=== PATIENT | male | born 1940 | race Caucasian/White ===

== ENCOUNTER 2023-07-05 09:17 | Emergency (ER) | payer MEDICARE, SELFPAY ==
[2023-07-05 09:35] VITALS: BP 164/84; PULSE 90; RESP 18; TEMP 36.9; O2SAT 95; BMI 29.8
--- NOTE | 2023-07-05 10:14 | EXP.UTC ---
Discharge Plan Disposition Patient Disposition: Still a Patient Referrals Follow up/Referrals: Justo Westfall DO [Staff Physician] - See instructions Rui Boothe MD [Primary Care Provider] - See instructions Activity Restrictions/Add. Instructions Additional Instructions/Restrictions: Your acute on chronic back pain associated with radicular symptoms needs to be evaluated by primary care physician and have an outpatient MRI if they feel like it is indicated. You do not have any signs or symptoms of a central nervous system compression that would warrant emergency MRI or emergent surgical intervention at this point. Clinical Impressions Clinical Impression: Chronic back pain Instructions Patient Instructions: DI for Low Back Pain Discharge ED Provider: Arnaldo Garza [facility] General Chief complaint: Back Pain/Injury Stated complaint: back pain down to leg, numbness in ankles Mode of Arrival: Ambulatory Source of Information: Patient Limitations: No Limitations Time Seen by Provider: 07/05/23 10:14 Description of Symptoms (Recalled from Triage Doc. 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 He has had multiple back surgeries. He states that he has right sided back pain that runs down his right leg. He states that he has bilateral ankle numbness HEENT Symptoms (Recalled from RN notes): No Resp Symptoms (Recalled from RN notes): No Skin Symptoms (Recalled from RN notes): No MS Symptoms (Recalled from RN notes): Yes Functional Status (Recalled from RN notes): n/a History of Present Illness Provider Complaint: Patient state that he has had a bad back for many years and had several back surgeries State that for the last week or so he has been having severe pain in his lower back that is going down into his right legs and feels like he is having numbness in both his ankles States that he was walking on a cane but has been using a walker and when he walks a couple feet he feels like his legs are going to give out from under him states that they are afraid he is going to fall he has been so weak States that the pain has got worse so he came in requesting a CT or MRI Denies loss of control of bowel or bladder Related Data Allergies Allergy/AdvReac Type Severity Reaction Status Date / Time No Known Allergies Allergy Verified 07/05/23 09:51 Worker's Comp Is this a Worker's Comp case?: No [facility] Disclaimer: The information contained in this section may have been updated after the patient was seen, as this information can be updated by other users. 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 Skin cancer Surgical History (Updated 07/05/23 @ 12:19 by Toshia Polanco CMA) H/O discectomy H/O shoulder surgery History of bilateral hip replacements History of bilateral knee replacement History of lumbar laminectomy for spinal cord decompression Social History (Updated 07/05/23 @ 11:05 by Arnaldo Garza MD) Smoking Status: Never smoker alcohol intake: never current occupational status: other Travel in the last 8 weeks: None ROS Obtained: Yes All systems reviewed & no additional complaints except as documented and Yes Systems reviewed as appropriate & no additional complaints except as documented Constitutional Constitutional: Reports system reviewed and no additional complaints, except as documented, Reports as per HPI and Reports weakness ENT Ears, Nose, Mouth, and Throat: Reports disequilibrium Cardiovascular Cardiovascular: Reports system reviewed and no additional complaints, except as documented and Reports as per HPI Respiratory Respiratory: Reports system reviewed and no additional complaints, except as documented and Reports as per HPI Gastrointestinal Gastrointestingal: Reports system reviewed and no additional complaints, except as documented and as per HPI Genito
[2023-07-05 10:30] VITALS: BP 146/81; PULSE 82; O2SAT 95
[2023-07-05 10:41] VITALS: BP 146/81; PULSE 81; RESP 18; TEMP 36.7; O2SAT 95; BMI 29.8
--- NOTE | 2023-07-05 11:02 | HMH.EDGENADL ---
Discharge Plan Disposition Patient Disposition: Still a Patient Referrals Follow up/Referrals: Justo Westfall DO [Staff Physician] - See instructions Rui Boothe MD [Primary Care Provider] - See instructions Activity Restrictions/Add. Instructions Additional Instructions/Restrictions: Your acute on chronic back pain associated with radicular symptoms needs to be evaluated by primary care physician and have an outpatient MRI if they feel like it is indicated. You do not have any signs or symptoms of a central nervous system compression that would warrant emergency MRI or emergent surgical intervention at this point. Clinical Impressions Clinical Impression: Chronic back pain Instructions Patient Instructions: DI for Low Back Pain Discharge ED Provider: Arnaldo Garza General Adult HPI General Chief complaint: Back Pain/Injury Stated complaint: back pain down to leg, numbness in ankles Time Seen by Provider: 07/05/23 10:14 Mode of Arrival: Wheelchair Source of Information: Patient Limitations: No Limitations Description of Symptoms (Recalled from ER Triage Doc. by RN): Patient complaint of right sided lower back pain that radiates to his hip and down his leg. States he has had this problem for weeks now and it is getting worse. Patient states he thinks he has a bad disc in his back. History of Present Illness HPI narrative: Patient is an 82-year-old male with 48-year history of back pain presenting to the emergency department with 1 week worsening of his symptoms. Has had 2 laminectomies with discectomies in the past feels like he has the same types of symptoms this time. Went to urgent treatment clinic and they sent him over the emergency department because the patient was adamant that he needed an MRI. He has bilateral hip replacements bilateral knee replacements has chronic arthritis as well. States the pain is located in the right posterior lateral aspect of his back radiating down the posterior aspect of his legs has no associated lower extremity weakness no saddle anesthesia no paralysis no urinary retention no urinary incontinence that is out of proportion to what he normally has no bowel incontinence no history of cancer no history of injection drug use or fever with this illness. Related Data Allergies Allergy/AdvReac Type Severity Reaction Status Date / Time No Known Allergies Allergy Verified 07/05/23 09:51 [facility] Disclaimer: The information contained in this section may have been updated after the patient was seen, as this information can be updated by other users. Social History Smoking Status: Never smoker alcohol intake: never current occupational status: other Travel in the last 8 weeks: None ROS Obtained: Yes All systems reviewed & no additional complaints except as documented Physical Exam General General appearance: alert and in no apparent distress Respiratory Respiratory exam: Present normal lung sounds bilaterally; Absent respiratory distress Cardiovascular Cardiovascular exam: Present regular rate Back Exam Back exam: Present other (Normal right lower extremity strength and sensation no saddle anesthesia there is some pain on the right lumbosacral region) Neurological Exam Neurological exam: Present alert and oriented X3 Medical Decision Making Chuy Inquiry Pt receiving controlled substance: No Vital Signs: 07/05/23 09:35 07/05/23 10:41 07/05/23 10:30 Temperature 98.5 F 98.1 F Temperature Source Oral Oral Pulse Rate 82 Pulse Rate [Right Radial] 90 81 Respiratory Rate 18 18 Blood Pressure 146/81 H Blood Pressure [Right Arm] 164/84 H 146/81 H Blood Pressure Mean 102 Blood Pressure Mean [Right Arm] 110 102 Blood Pressure Source [Right Arm] Automatic Cuff Automatic Cuff Blood Pressure Position [Right Arm] Sitting Sitting 02 Sat by Pulse Oximetry 95 95 95 Oxygen Delivery Method Room Air Room Air Room Air Medical Decision Narrative: 82-ye
[2023-07-05 11:32] VITALS: BP 146/81; PULSE 81; RESP 18; TEMP 36.7; O2SAT 95
== END 2023-07-05 11:33 | disposition still patient (30) ==
LOC: UTC 09:22 → ER 10:17
PROVIDERS: Emergency Provider Student in an Organized Health Care Education/Training Program; PCP Family Medicine
DX: M54.50 Low back pain, unspecified (principal); M25.551 Pain in right hip
CPT/HCPCS: 72100; 80053; 80061; 83036; 84439; 84443; 85025; 99285; G0103

== ENCOUNTER → 2023-07-05 11:00 | Outpatient (CLI) | payer MEDICARE, SELFPAY ==
[2023-07-05 17:31] LABS: Basophils # 0.1 K/mm3 (0-0.2); Basophils % 0.6 % (0.1-2.0); Eosinophils # 0.2 K/mm3 (0.0-0.4); Eosinophils % 1.9 % (0.1-12.0); Hemoglobin 15.3 g/dL (14.1-18.0); Lymphocytes # 3.3 K/mm3 (0.7-4.5); Lymphocytes % 36.1 % (10-50); Mean Corpuscular HGB Conc 32.6 g/dL (31.8-35.4); Mean Corpuscular Hemoglobin 29.8 pg (27.0-31.2); Mean Corpuscular Volume 91.4 fl (80-94); Mean Platelet Volume 8.2 fl (7.4-10.4); Monocytes % 10.9 % (1.7-9.3); Neutrophils # 4.7 K/mm3 (1.8-7.8); Neutrophils % 50.7 % (37.0-80.0); Platelet Count 213 K/mm3 (142-424); Red Blood Count 5.14 M/mm3 (4.60-6.20); Red Cell Distribution Width 14.8 % (11.5-17.5); White Blood Count 9.2 K/mm3 (4.8-10.8)
[2023-07-05 17:57] LABS: Alanine Aminotransferase 32 U/L (12-78); Albumin Level 3.6 g/dl (3.5-5.0); Albumin/Globulin Ratio 1.4 (1.1-1.8); Alkaline Phosphatase 86 U/L (38-126); Anion Gap 12.1 mEq/L (5-15); Aspartate Amino Transferase 30 U/L (17-59); Bilirubin,Total 1.3 mg/dl (0.2-1.3); Blood Urea Nitrogen 12 mg/dl (9-20); Carbon Dioxide 30 mmol/L (22.0-30.0); Chloride 99 mmol/L (98-107); Chol/HDL Ratio 4.2 (1-3.5); Cholesterol 200 mg/dl (140-200); Estimated Glomerular Filt Rate 92 ml/min (>60); GFR (African American) 111 ML/MIN (>60); Globulin 2.6 g/dL (1.3-3.2); Glucose 138 mg/dl (74-100); HDL Cholesterol 48 mg/dl (40-60); Potassium 4.1 mmoL/L (3.5-5.1); Sodium 137 mmol/L (136-145); Total Protein,Serum 6.2 g/dl (6.3-8.2); Triglycerides 114 mg/dl (30-150); VLDL Cholesterol 23 mg/dL (0-40)
[2023-07-05 18:08] LABS: Direct LDL Cholesterol 115.47 mg/dL (100-129)
[2023-07-05 18:15] LABS: Free T4 (Free Thyroxine) 1.02 ng/dl (0.78-2.19)
[2023-07-05 18:28] LABS: Prostate Specific Ag Screen 80.9 ng/ml (0.0-4.0); Thyroid Stimulating Hormone 2.59 uIU/mL (0.465-4.68)
[2023-07-06 00:17] LABS: Hemoglobin A1C 8.8 % (4.0-6.0)
== END ==
PROVIDERS: PCP Internal Medicine; Visit Provider Internal Medicine
DX: E05.90 Thyrotoxicosis, unspecified without thyrotoxic crisis or storm (principal); Z13.29 Encounter for screening for other suspected endocrine disorder; R73.9 Hyperglycemia, unspecified; R97.20 Elevated prostate specific antigen [PSA]; Z00.00 Encounter for general adult medical examination without abnormal findings; E78.5 Hyperlipidemia, unspecified; Z13.220 Encounter for screening for lipoid disorders; G89.29 Other chronic pain; M54.9 Dorsalgia, unspecified
CPT/HCPCS: 80053; 80061; 83036; 84439; 84443; 85025; G0103

== ENCOUNTER → 2023-07-05 12:48 | Outpatient (CLI) | payer MEDICARE, SELFPAY ==
--- NOTE | 2023-07-05 12:53 | XR_ITS ---
FINAL REPORT CLINICAL HISTORY: Severe low back pain COMPARISON: None FINDINGS: 3 views of the lumbar spine were obtained. There is no evidence of fracture or dislocation. The vertebral alignment is normal. There are advanced changes of degenerative disc disease at L3-4, L4-5, and L5-S1. Vertebrae are normal in height. IMPRESSION: Advanced changes of degenerative disc disease without acute bony abnormality. Reviewed, Interpreted and Dictated by Boris Kilpatrick MD Transcribed by Smiley Espinal Authenticated and [facility]
== END ==
PROVIDERS: PCP Internal Medicine; Visit Provider Internal Medicine
DX: G89.29 Other chronic pain (principal); M54.9 Dorsalgia, unspecified
CPT/HCPCS: 72100

== ENCOUNTER → 2023-07-18 10:13 | Outpatient (CLI) | payer MEDICARE, SELFPAY ==
--- NOTE | 2023-07-18 10:14 | MR_ITS ---
FINAL REPORT CLINICAL HISTORY: Severe low back pain, previous Hx of pinched nerve 20ml prohance FINDINGS: Multiplanar MR imaging of the lumbar spine was performed without and with contrast. On the sagittal T2-weighted images, disc degeneration is seen throughout with endplate changes at multiple levels. There is mild retrolisthesis of L2 on 3 and L3 on 4. There is no evidence of fracture. The conus is seen at approximately the L1 level and has an unremarkable appearance. L1-2: An annular bulge is present. Facet arthropathy and osteophytes are present. There is no significant canal stenosis or neural foraminal narrowing. L2-3: An annular bulge is present. Facet arthropathy and osteophytes are present. There is moderate right and mild left neural foraminal narrowing. There is severe central canal stenosis with an AP diameter of the thecal sac of 4 mm. L3-4: An annular bulge is present. Facet arthropathy and osteophytes are present. There is a left foraminal disc protrusion with left L4 nerve root impingement. There is moderate right and severe left neural foraminal narrowing. There is severe central canal stenosis with an AP diameter of the thecal sac of 4 mm. L4-5: An annular bulge is present. Facet arthropathy and osteophytes are present. There is moderate bilateral neural foraminal narrowing. L5-S1: An annular bulge is present. Facet arthropathy and osteophytes are present. There is mild bilateral neural foraminal narrowing. No abnormal contrast enhancement is identified. IMPRESSION: Multilevel mild degenerative disc disease and spondylosis with areas of neural foraminal narrowing as described. Severe central canal stenosis at L2-3 and L3-4. Left foraminal disc protrusion at L3-4 with left L4 nerve root impingement and severe left neural foraminal narrowing. Reviewed, Interpreted and Dictated by Felix Castillo III, MD Transcribed by Estrellita Ordonez Authenticated and [facility]
== END ==
PROVIDERS: PCP Internal Medicine; Visit Provider Internal Medicine
DX: G89.29 Other chronic pain (principal); M54.50 Low back pain, unspecified; M79.604 Pain in right leg; Z98.890 Other specified postprocedural states
CPT/HCPCS: 72158; 76376; A9576

== ENCOUNTER 2024-05-30 14:11 | Emergency (ER) | payer MEDICARE, SELFPAY ==
[2024-05-30 14:23] VITALS: BP 145/80; BP 151/80; PULSE 86; PULSE 88; RESP 16; TEMP 36.6; O2SAT 95; O2SAT 96; BMI 26.6
--- NOTE | 2024-05-30 14:25 | PC.NURSE ---
DR SALAZAR AT BEDSIDE
--- NOTE | 2024-05-30 14:26 | PC.NURSE ---
Dr. Huang at BS for pt eval
[2024-05-30 14:27] VITALS: BMI 25.8
--- NOTE | 2024-05-30 14:28 | PC.NURSE ---
RT notified of VBG order
[2024-05-30 14:33] LABS: VBG Base Excess -1.5 mmol/L (-2.4-2.3); VBG Oxygen Saturation 52.8 % (50-70); VBG PCO2 52.4 mmol/L (35-51); VBG PO2 28.4 mmol/L (28-40); VBG Total CO2 26.6 mmol/L (23-27)
[2024-05-30 14:43] LABS: Basophils % 0.3 % (0.1-2.0); Hemoglobin 15.3 g/dL (14.1-18.0); Lymphocytes # 0.6 K/mm3 (0.7-4.5); Lymphocytes % 4.7 % (10-50); Mean Corpuscular HGB Conc 31.9 g/dL (31.8-35.4); Mean Corpuscular Hemoglobin 31.8 pg (27.0-31.2); Mean Corpuscular Volume 99.8 fl (80-94); Mean Platelet Volume 7.9 fl (7.4-10.4); Monocytes # 0.3 K/mm3 (0.1-1.0); Neutrophils # 12.6 K/mm3 (1.8-7.8); Platelet Count 247 K/mm3 (142-424); Red Blood Count 4.81 M/mm3 (4.60-6.20); Red Cell Distribution Width 14.5 % (11.5-17.5); White Blood Count 13.6 K/mm3 (4.8-10.8)
[2024-05-30 14:45] LABS: Alanine Aminotransferase 82 U/L (12-78); Albumin Level 3.6 g/dl (3.5-5.0); Albumin/Globulin Ratio 1.2 (1.1-1.8); Alkaline Phosphatase 120 U/L (38-126); Anion Gap 13.6 mEq/L (5-15); Aspartate Amino Transferase 157 U/L (17-59); Blood Urea Nitrogen 47 mg/dl (9-20); Calcium 8.6 mg/dl (8.4-10.2); Carbon Dioxide 28 mmol/L (22.0-30.0); Chloride 93 mmol/L (98-107); Creatinine Clearance Estimated 42 mL/min (50-200); Estimated Glomerular Filt Rate 41 ml/min (>60); GFR (African American) 50 ML/MIN (>60); Globulin 3.1 g/dL (1.3-3.2); Potassium 4.6 mmoL/L (3.5-5.1); Sodium 130 mmol/L (136-145); Total Protein,Serum 6.7 g/dl (6.3-8.2)
[2024-05-30] MEDS: LACTATED RINGERS 1000ML 1,000 ML 999 ML IV (14:45)
[2024-05-30 14:49] LABS: Glucose 496 mg/dl (74-100)
--- NOTE | 2024-05-30 14:49 | PC.NURSE ---
Daphney from LAB called critical Glucose of 496. Repeated and confirmed. Dr. Sal kate.
[2024-05-30 14:50] LABS: MANUAL DIFFERENTIAL MANUAL DIFFERENTIAL (MANUAL DIFF)
--- NOTE | 2024-05-30 14:57 | ED_ITS ---
Discharge Plan Disposition Patient Disposition: Home, Self-Care Condition: Good Prescriptions Prescriptions: New ciprofloxacin HCl 500 mg tablet 500 mg PO BID 28 Days Qty: 56 0RF tamsulosin [Flomax] 0.4 mg capsule 0.4 mg PO DAILY Qty: 30 1RF No Action prednisone 20 mg tablet 20 mg PO DAILY Patient Comments: nasal congestion and Left shoulder is bone on bone losartan 50 mg tablet 50 mg PO DAILY Qty: 90 3RF Referrals Follow up/Referrals: Saray Millan PA [Primary Care Provider] - See instructions Aubrey Olea MD [Staff Physician] - See instructions Activity Restrictions/Add. Instructions Additional Instructions/Restrictions: You were evaluated in the emergency department today. You have significant backup of fluid in your bladder and kidneys. Your bladder is not draining like it should be, which could be due to an acute infection of your prostate. We are prescribing you antibiotics for this. We recommended Nunez catheter placement for this, but she refused. I recommend very close follow-up with your primary care provider and urologist, as difficulty draining your bladder like this can cause kidney failure. Please complete the full course of antibiotics as prescribed. Make sure that you take your metformin and keep an eye on your blood sugar at home. Have your primary care provider keep an eye on your blood sugar and A1c as well, as they may need to make medication changes. You have abnormality of your pancreas on CT scan, which could indicate pancreatic cancer. For this, I recommend close outpatient follow-up. We are providing you with information for gastroenterology below if you wish to follow-up with them. Return to the emergency department right away for new or worsening symptoms. Dr. Abad Lyn, [facility]. Clinical Impressions Clinical Impression: Elevated prostate specific antigen [PSA], Hyperglycemia, Acute urinary retention, Prostatitis, Noncompliance with medication regimen, Pancreatic mass, DIOGO (acute kidney injury), Transaminitis Instructions Patient Instructions: DI for Urinary Retention in Men, DI for Acute Prostatitis Print Language Print Language: Fijian Discharge ED Provider: Klarissa Longo General Adult HPI <Gallo Huang MD - Last Filed: 05/30/24 15:44> General Chief complaint: Recheck/Abnormal Lab/Rx Stated complaint: high blood sugar, prostate issues Time Seen by Provider: 08/15/24 14:24 Mode of Arrival: Wheelchair Source of Information: Patient and Spouse Limitations: No Limitations Description of Symptoms (Recalled from ER Triage Doc. by RN): Angelica Sam CONSULTING PROJECT DIRECTOR called and states that the pts BSFS was >400 in office. Angelica reports his last A1C was >8 and his last PSA was 80. Angelica requests the pt have a PSA level checked and blood work for high glucose. pt states he has no complaints and is just here for a check up. pt does not take his diabetic medication, states he just doesn't want to. pts states he needs to. History of Present Illness HPI narrative: 83-year-old male presents to the ER from primary care office for concerns of hyperglycemia and previously elevated PSA. I called the CONSULTING PROJECT DIRECTOR who sent him and discussed this case. She states she is concerned that family presented worried that they cannot take care of the patient, he refuses to take his medications, she is concerned that his PSA was previously 80 and has never been manage so she was worried he could have untreated prostatitis, she was also concerned about the hyperglycemia. Patient is rude and aggressive, he states he has no complaints and and states he is here for [me] to tell him what is wrong . Review of previous records demonstrates patient does have a diabetes diagnosis and refuses to take his medication because he does not want to. is stating we need to evaluate him to make sure he is okay though he does not have any specific complaints. On review of systems he denies everything stating he feels fine. Specifically he denies fevers, chills, chest pain, shortness of breath, numbness, tingling, weakness, abdominal pain, nausea, vomiting, diarrhea, increased thirst, increased urination, difficulty urinating, painful urination, or blood in the urine. Related Data Home Medications ?Medication ?Instructions ?Recorded ?Confirmed prednisone 20 mg tablet 20 mg PO DAILY 07/18/23 05/30/24 Previous Rx's ?Medication ?Instructions ?Recorded losartan 50 mg tablet 50 mg PO DAILY #90 tabs 08/09/23 ciprofloxacin HCl 500 mg tablet 500 mg PO BID 28 days #56 tabs 05/30/24 tamsulosin 0.4 mg capsule (Flomax) 0.4 mg PO DAILY #30 caps 05/30/24 Allergies Allergy/AdvReac Type Severity Reaction Status Date / Time No Known Allergies Allergy Verified 05/30/24 14:33 PFSH <Gallo Huang MD - Last Filed: 05/30/24 15:44> [facility] Disclaimer: The information contained in this section may have been updated after the patient was seen, as this information can be updated by other users. 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 Skin cancer Surgical History H/O discectomy History of lumbar laminectomy for spinal cord decompression History of bilateral knee replacement H/O shoulder surgery History of bilateral hip replacements Social History Smoking Status: Never smoker alcohol intake: never current occupational status: other Travel in the last 8 weeks: None <Gallo Huang MD - Last Filed: 05/30/24 15:44> ROS Obtained: Yes All systems reviewed & no additional complaints except as documented Physical Exam <Gallo Huang MD - Last Filed: 05/30/24 15:44> General General appearance: alert and in no apparent distress Head Head exam: atraumatic and normocephalic Eye Eye exam: Present EOMI; Absent PERRL (Baseline, 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) ENT ENT exam: Present mucous membranes moist Neck Neck exam: Present normal inspection and full ROM Chest Chest inspection: Present symmetric chest wall rise Respiratory Respiratory exam: Present normal lung sounds bilaterally; Absent respiratory distress, wheezes or stridor Cardiovascular Cardiovascular exam: Present regular rate and normal rhythm Abdominal Exam Abdominal exam: Present soft; Absent distention, tenderness, guarding or rebound Extremities Exam Extremities exam: Present full ROM, edema (Mild +1 bilateral lower extremity pitting edema) and other (Venous stasis changes bilateral lower extremities) Neurological Exam Neurological exam: Present alert and oriented X3; Absent motor sensory deficit Psychiatric Psychiatric exam: Present normal affect, normal mood and other (Rude to staff but not being combative) Skin Skin exam: Present warm and dry Medical Decision Making <Gallo Huang MD - Last Filed: 05/30/24 15:44> Medical Records Medical records reviewed: Yes I reviewed the patient's medical records. MR Comment: Previous family medicine documentation demonstrates patient is noncompliant with his medicines and has a history of uncontrolled type 2 diabetes. Chuy Inquiry Pt receiving controlled substance: No Vital Signs: 05/30/24 14:23 05/30/24 14:23 05/30/24 15:00 Temperature 97.8 F Temperature Source Oral Pulse Rate 88 78 Pulse Rate [Left] 86 Respiratory Rate 16 20 Blood Pressure 145/80 H 130/71 Blood Pressure [Right Arm] 151/80 H Blood Pressure Mean Blood Pressure Mean [Right Arm] 103 Blood Pressure Source [Right Arm] Automatic Cuff Blood Pressure Position [Right Arm] Sitting 02 Sat by Pulse Oximetry 96 95 96 Oxygen Delivery Method Room Air Room Air Room Air 05/30/24 15:15 05/30/24 16:00 05/30/24 16:30 Temperature Temperature Source Pulse Rate 75 85 90 Pulse Rate [Left] Respiratory Rate 16 18 16 Blood Pressure 129/73 143/80 H 129/83 Blood Pressure [Right Arm] Blood Pressure Mean 98 Blood Pressure Mean [Right Arm] Blood Pressure Source [Right Arm] Blood Pressure Position [Right Arm] 02 Sat by Pulse Oximetry 96 96 95 Oxygen Delivery Method Room Air Room Air Room Air Lab Data Lab Results 05/30/24 14:20: Lactate 3.1 H 05/30/24 14:27: VBG pH 7.30 L, VBG pCO2 52.4 H, VBG pO2 28.4, VBG HCO3 25.0, VBG Total CO2 26.6, VBG O2 Saturation 52.8, VBG Base Excess -1.5, VBG Lactic Acid 3.0 H 05/30/24 14:29: WBC 13.6 H, RBC 4.81, Hgb 15.3, Hct 48.0, MCV 99.8 H, MCH 31.8 H , MCHC 31.9, RDW 14.5, Plt Count 247, MPV 7.9, Neut % (Auto) 93.0 H, Lymph % (Auto) 4.7 L, Glenn % (Auto) 2.0, Eos % (Auto) 0.0 L, Baso % (Auto) 0.3, Neut # (Auto) 12.6 H, Lymph # (Auto) 0.6 L, Glenn # (Auto) 0.3, Eos # (Auto) 0.0, Baso # (Auto) 0.0, Total Counted 100, Neutrophils % (Manual) 90 H, Lymphocytes % (Manual) 10, Platelet Estimate Normal, RBC Morphology Normal, Sodium 130 L, Potassium 4.6, Chloride 93 L, Carbon Dioxide 28, Anion Gap 13.6, BUN 47 H, C reatinine 1.60 H, Estimated Creat Clear 42, Estimated GFR 41 L, Est GFR ( Amer) 50 L, Glucose 496 H*, Hemoglobin A1c 12.3 H, Calcium 8.6, Total Bilirubin 2.0 H, AST 157 H, ALT 82 H, Alkaline Phosphatase 120, Total Protein 6.7, Albumin 3.6, Globulin 3.1, Albumin/Globulin Ratio 1.2, Prostate Specific Ag Cancelled 05/30/24 14:29: Prostate Specific Ag 103 H 05/30/24 16:12: Urine Color Yellow, Urine Appearance Clear, Urine pH 6.0, Ur Specific [place] 1.020, Urine Protein Negative, Urine Glucose (UA) 3+, Urine Ketones Trace, Urine Blood 1+, Urine Nitrate Negative, Urine Bilirubin Negative, Urine Urobilinogen 0.2, Ur Leukocyte Esterase 1+ A, Urine RBC 10-20, Urine WBC Tntc, Ur Squamous Epith Cells 10-20, Urine Bacteria 4+ 05/30/24 14:29 05/30/24 14:29 Orders (Tests/Meds): ED MEDICATIONS Discontinued Medications Generic Name Dose Route Start Last Admin Trade Name Jadielq PRN Reason Stop Dose Admin Lactated Ringer's 1,000 mls @ 999 mls/hr 05/30/24 14:42 05/30/24 14:45 Lactated Ringer's 1000 Ml Bag IV 05/30/24 15:42 999 mls/hr .Q1H1M ONE Administration Iopamidol 75 ml 05/30/24 15:32 05/30/24 15:33 Iopamidol-370 (76%);100ml Bottle IV 05/30/24 15:33 75 ml ONCE ONE Administration Sodium Chloride 10 ml 05/30/24 15:32 05/30/24 15:33 Sodium Chloride 0.9% 10ml Syr (Rad Only) IV 05/30/24 15:33 10 ml ONCE ONE Administration ORDERS Category Date Time Status CT abdomen pelvis w con Stat Cat Scan 05/30/24 15:15 Completed Complete Blood Count Auto Diff Stat Lab 05/30/24 14:29 Completed Comprehensive Metabolic Panel Stat Lab 05/30/24 14:29 Completed Hemoglobin A1C Stat Lab 05/30/24 14:29 Completed Lactic Acid Stat Lab 05/30/24 14:20 Completed Prostate Specific Ag, Diagnost Routine Lab 05/30/24 14:29 Completed Urinalysis and Microscopic Stat Lab 05/30/24 16:12 Completed Urine Culture Stat Micro 05/30/24 16:12 Received Venous Blood Gas Stat RT 05/30/24 14:27 Completed Medical Decision Narrative: In summary, this 83-year-old male presents to the emergency department today with no complaints but at the recommendation of primary care CONSULTING PROJECT DIRECTOR who sent him for concerns of lab abnormalities. On initial evaluation patient is hemodynamically stable, afebrile, physical exam notable for mild venous stasis changes and pitting edema of the bilateral lower extremities, cardiopulmonary exam reassuring, abdomen benign, neuroexam unremarkable. Differential diagnosis includes but is not limited to uncontrolled type 2 diabetes, considered DKA, HHS, urinary tract infection, prostatitis, kidney dysfunction, other endorgan dysfunction. Based on these concerns, I ordered serum labs, urine studies. Labs personally reviewed demonstrate kidney dysfunction, VBG with pH 7.0, lactic on VBG was elevated however these often do not agree with lactic acid on chemistry which is pending. Patient is receiving IV fluids. He does have mild transaminitis and hyperbilirubinemia. Given findings on labs as well as previously elevated PSA, there is the possibility that patient has an underlying undiagnosed malignancy, CT abdomen pelvis has been added to workup. Patient handed off to Dr. Longo at physician handoff pending lactic acid, A1c, UA, CT imaging. <Klarissa Longo, DO - Last Filed: 05/30/24 17:12> Vital Signs: 05/30/24 14:23 05/30/24 14:23 05/30/24 15:00 Temperature 97.8 F Temperature Source Oral Pulse Rate 88 78 Pulse Rate [Left] 86 Respiratory Rate 16 20 Blood Pressure 145/80 H 130/71 Blood Pressure [Right Arm] 151/80 H Blood Pressure Mean Blood Pressure Mean [Right Arm] 103 Blood Pressure Source [Right Arm] Automatic Cuff Blood Pressure Position [Right Arm] Sitting 02 Sat by Pulse Oximetry 96 95 96 Oxygen Delivery Method Room Air Room Air Room Air 05/30/24 15:15 05/30/24 16:00 05/30/24 16:30 Temperature Temperature Source Pulse Rate 75 85 90 Pulse Rate [Left] Respiratory Rate 16 18 16 Blood Pressure 129/73 143/80 H 129/83 Blood Pressure [Right Arm] Blood Pressure Mean 98 Blood Pressure Mean [Right Arm] Blood Pressure Source [Right Arm] Blood Pressure Position [Right Arm] 02 Sat by Pulse Oximetry 96 96 95 Oxygen Delivery Method Room Air Room Air Room Air Lab Data Lab Results 05/30/24 14:20: Lactate 3.1 H 05/30/24 14:27: VBG pH 7.30 L, VBG pCO2 52.4 H, VBG pO2 28.4, VBG HCO3 25.0, VBG Total CO2 26.6, VBG O2 Saturation 52.8, VBG Base Excess -1.5, VBG Lactic Acid 3.0 H 05/30/24 14:29: WBC 13.6 H, RBC 4.81, Hgb 15.3, Hct 48.0, MCV 99.8 H, MCH 31.8 H , MCHC 31.9, RDW 14.5, Plt Count 247, MPV 7.9, Neut % (Auto) 93.0 H, Lymph % (Auto) 4.7 L, Glenn % (Auto) 2.0, Eos % (Auto) 0.0 L, Baso % (Auto) 0.3, Neut # (Auto) 12.6 H, Lymph # (Auto) 0.6 L, Glenn # (Auto) 0.3, Eos # (Auto) 0.0, Baso # (Auto) 0.0, Total Counted 100, Neutrophils % (Manual) 90 H, Lymphocytes % (Manual) 10, Platelet Estimate Normal, RBC Morphology Normal, Sodium 130 L, Potassium 4.6, Chloride 93 L, Carbon Dioxide 28, Anion Gap 13.6, BUN 47 H, C reatinine 1.60 H, Estimated Creat Clear 42, Estimated GFR 41 L, Est GFR ( Amer) 50 L, Glucose 496 H*, Hemoglobin A1c 12.3 H, Calcium 8.6, Total Bilirubin 2.0 H, AST 157 H, ALT 82 H, Alkaline Phosphatase 120, Total Protein 6.7, Albumin 3.6, Globulin 3.1, Albumin/Globulin Ratio 1.2, Prostate Specific Ag Cancelled 05/30/24 14:29: Prostate Specific Ag 103 H 05/30/24 16:12: Urine Color Yellow, Urine Appearance Clear, Urine pH 6.0, Ur Specific [place] 1.020, Urine Protein Negative, Urine Glucose (UA) 3+, Urine Ketones Trace, Urine Blood 1+, Urine Nitrate Negative, Urine Bilirubin Negative, Urine Urobilinogen 0.2, Ur Leukocyte Esterase 1+ A, Urine RBC 10-20, Urine WBC Tntc, Ur Squamous Epith Cells 10-20, Urine Bacteria 4+ Orders (Tests/Meds): ED MEDICATIONS Discontinued Medications Generic Name Dose Route Start Last Admin Trade Name Freq PRN Reason Stop Dose Admin Lactated Ringer's 1,000 mls @ 999 mls/hr 05/30/24 14:42 05/30/24 14:45 Lactated Ringer's 1000 Ml Bag IV 05/30/24 15:42 999 mls/hr .Q1H1M ONE Administration Iopamidol 75 ml 05/30/24 15:32 05/30/24 15:33 Iopamidol-370 (76%);100ml Bottle IV 05/30/24 15:33 75 ml ONCE ONE Administration Sodium Chloride 10 ml 05/30/24 15:32 05/30/24 15:33 Sodium Chloride 0.9% 10ml Syr (Rad Only) IV 05/30/24 15:33 10 ml ONCE ONE Administration ORDERS Category Date Time Status CT abdomen pelvis w con Stat Cat Scan 05/30/24 15:15 Completed Complete Blood Count Auto Diff Stat Lab 05/30/24 14:29 Completed Comprehensive Metabolic Panel Stat Lab 05/30/24 14:29 Completed Hemoglobin A1C Stat Lab 05/30/24 14:29 Completed Lactic Acid Stat Lab 05/30/24 14:20 Completed Prostate Specific Ag, Diagnost Routine Lab 05/30/24 14:29 Completed Urinalysis and Microscopic Stat Lab 05/30/24 16:12 Completed Urine Culture Stat Micro 05/30/24 16:12 Received Venous Blood Gas Stat RT 05/30/24 14:27 Completed Medical Decision Narrative: In summary, this 83-year-old male presents to the emergency department today with no complaints but at the recommendation of primary care CONSULTING PROJECT DIRECTOR who sent him for concerns of lab abnormalities. On initial evaluation patient is hemodynamically stable, afebrile, physical exam notable for mild venous stasis changes and pitting edema of the bilateral lower extremities, cardiopulmonary exam reassuring, abdomen benign, neuroexam unremarkable. Differential diagnosis includes but is not limited to uncontrolled type 2 diabetes, considered DKA, HHS, urinary tract infection, prostatitis, kidney dysfunction, other endorgan dysfunction. Based on these concerns, I ordered serum labs, urine studies. Labs personally reviewed demonstrate kidney dysfunction, VBG with pH 7.0, lactic on VBG was elevated however these often do not agree with lactic acid on chemistry which is pending. Patient is receiving IV fluids. He does have mild transaminitis and hyperbilirubinemia. Given findings on labs as well as previously elevated PSA, there is the possibility that patient has an underlying undiagnosed malignancy, CT abdomen pelvis has been added to workup. Patient handed off to Dr. Longo at physician handoff pending lactic acid, A1c, UA, CT imaging. DO Donta: On my assessment of the patient, he is very agitated and verbally aggressive. He states that he is ready to get out of here and go get something to eat. His lab results demonstrated leukocytosis, elevated creatinine, elevated lactic acid, transaminitis, hyperbilirubinemia. Urine is concerning for potential infection, which could be prostatitis causing acute urinary retention. CT scan showed that the patient has hydronephrosis, likely related to urinary retention. He also has a pancreatic abnormality which could be potentially pancreatic cancer. He was found to have gallstones as well. We did a postvoid bladder scan which demonstrated 440 mL in his bladder after urinating, consistent with urinary retention. I advised the patient that I recommended Nunez catheter placement because urinary retention with significant reflux of his kidneys like this could cause kidney failure and also will keep him from clearing this infection that he likely has. He states that he does not care and an 83-year-old man wants nothing to do with a Nunez catheter. I explained this to his as well who is at bedside, and she expressed understanding and agreement. I advised him of the findings on CT scan, including the gallstones, pancreatic mass, and the significant hydronephrosis and hydroureter. I stated that his pancreatic mass could be pancreatic cancer, and I recommended outpatient follow-up with gastroenterology for this. He stated that he has enough staff to worry about and at 83 years old, he is not going to live forever. He stated that he does not care and if we do not take his IV out, he is going to get up and walk out of here. His blood sugar is high, but his states he is not taking his metformin. I advised that he continue taking this, keep an eye on his blood sugar, and follow-up closely with his primary care provider. Patient is very cantankerous, argumentative, and is not receptive to me explaining the results, but I did notify his of everything. I prescribed him 28 days of ciprofloxacin to treat likely prostatitis, and I also prescribed him Flomax to help with his urinary retention. I gave him information for urology and gastroenterology follow-up and advised that he should do so. he was discharged after all questions were answered Critical Care <Gallo Huang MD - Last Filed: 05/30/24 15:44> Critical Care Time Critical Care Time: No
[2024-05-30 15:00] VITALS: BP 130/71; PULSE 78; RESP 20; O2SAT 96
[2024-05-30 15:15] VITALS: BP 129/73; PULSE 75; RESP 16; O2SAT 96
--- NOTE | 2024-05-30 15:15 | CT_ITS ---
FINAL REPORT TECHNIQUE: Postcontrast axial images through the abdomen and pelvis were performed. This study was performed with techniques to keep radiation doses as low as reasonably achievable, (ALARA). Individualized dose reduction techniques using automated exposure control or adjustment of mA and/or kV according to the patient's size were employed. CLINICAL HISTORY: transaminitis, elevated bili, elevated PSA FINDINGS: Abdomen: There is mild bibasilar atelectasis. The liver is normal in size and attenuation. Gallstones are identified. There is no biliary ductal dilatation. The spleen is unremarkable. The adrenals are normal. There is focal pancreatic ductal dilatation versus a cystic mass measuring up to 62 mm in transverse dimension, cystic pancreatic neoplasm is not excluded. Cyst in the right posterior kidney measures 30 mm. The aorta is normal in caliber. No free fluid or adenopathy is identified. There is moderate bilateral hydronephrosis and hydroureter. Pelvis: The appendix is not identified. There is sigmoid diverticulosis without evidence of diverticulitis. Moderate to large amount of retained stool is seen throughout the colon. There is bilateral hydroureter without evidence of ureteral stones. The urinary bladder is moderately distended. No free fluid, free air, abscess or adenopathy is identified. 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 IMPRESSION: Gallstones. Consider hepatobiliary scan. Moderate bilateral hydronephrosis and hydroureter, may be due to reflux. Pancreatic ductal dilatation versus a cystic mass, cystic neoplasm is not excluded. This could be further evaluated with ERCP. Reviewed, Interpreted and Dictated by Felix Castillo III, MD Transcribed by Estrellita Ordonez Authenticated and [facility]
[2024-05-30 15:19] LABS: Lymphocytes % 10 % (10-50); Neutrophils % 90 % (42-76); Platelet Estimate Normal; RBC Morphology Normal; Total Cells Counted 100
[2024-05-30] MEDS: IOPAMIDOL-370 (76%);100ML BOTTLE 75 ML IV (15:33)
[2024-05-30] MEDS: SODIUM CHLORIDE 0.9% 10ML SYR (RAD ONLY) 10 ML IV (15:33)
[2024-05-30 15:46] LABS: Lactic Acid 3.1 mmol/L (0.7-2.1)
[2024-05-30 15:53] LABS: Hemoglobin A1C 12.3 % (4.0-6.0)
[2024-05-30 16:00] VITALS: BP 143/80; PULSE 85; RESP 18; O2SAT 96
[2024-05-30 16:14] LABS: Microscopic, Urine URINE MICROSCOPIC (MICROSCOPIC)
--- NOTE | 2024-05-30 16:22 | PC.NURSE ---
PVR 440ml after urinating 250ml
[2024-05-30 16:24] LABS: Appearance,Urine CLEAR (Clear); Bilirubin,Urine Negative (Negative); Blood, Urine 1+ (Negative); Color,Urine YELLOW (Yellow); Glucose,Urine (UA) 3+ (Negative); Ketones,Urine TRACE (Negative); Leukocyte Esterase,Urine 1+ (Negative); Nitrate,Urine Negative (Negative); Protein,Urine Negative (Negative); Urobilinogen,Urine 0.2 EU/dl (0.2)
[2024-05-30 16:30] VITALS: BP 129/83; PULSE 90; RESP 16; O2SAT 95
[2024-05-30 16:35] LABS: Bacteria,Urine 4+ /lpf; WBC,Urine TNTC #/hpf (0-3)
[2024-05-30 16:37] LABS: Prostate Specific Ag, Diagnost 103 ng/ml (0.0-4.0)
--- NOTE | 2024-05-30 16:58 | PC.NURSE ---
Dr. Longo at BS to update pt on results and POC
[2024-05-30 17:09] VITALS: BP 162/98; PULSE 97; RESP 18; TEMP 36.8; O2SAT 96
[2024-05-30 18:35] LABS: Reflex Lactic Add Lactic Reflex
--- NOTE | 2024-06-02 09:35 | PC.NURSE ---
discussed urine culture results with , pt dc with gio, ntd
== END 2024-05-30 17:11 | disposition home or self-care (01) ==
PROVIDERS: Emergency Medicine; Family Medicine; Emergency Provider Emergency Medicine; PCP Student in an Organized Health Care Education/Training Program
DX: E11.65 Type 2 diabetes mellitus with hyperglycemia (principal); R74.02 Elevation of levels of lactic acid dehydrogenase [LDH]; N13.39 Other hydronephrosis; N13.4 Hydroureter; B96.4 Proteus (mirabilis) (morganii) as the cause of diseases classified elsewhere; K80.20 Calculus of gallbladder without cholecystitis without obstruction; K86.89 Other specified diseases of pancreas; N41.9 Inflammatory disease of prostate, unspecified; R33.8 Other retention of urine; R97.20 Elevated prostate specific antigen [PSA]; N17.9 Acute kidney failure, unspecified; R74.01 Elevation of levels of liver transaminase levels; E87.1 Hypo-osmolality and hyponatremia; R45.4 Irritability and anger; Z79.84 Long term (current) use of oral hypoglycemic drugs; R45.1 Restlessness and agitation; Z91.148 Patient's other noncompliance with medication regimen for other reason; I10 Essential (primary) hypertension; E78.5 Hyperlipidemia, unspecified
CPT/HCPCS: 74177; 80053; 81001; 82803; 83036; 83605; 84153; 85007; 85025; 85027; 87086; 87088; 87186; 96360; 99285; J7120; Q9967

== ENCOUNTER 2024-06-05 16:34 | Emergency (ER) | payer MEDICARE, SELFPAY ==
[2024-06-05 17:10] VITALS: BP 164/98; PULSE 73; RESP 16; TEMP 36.6; O2SAT 99; BMI 27.8
--- NOTE | 2024-06-05 17:13 | XR_ITS ---
PROCEDURE INFORMATION: Exam: XR Abdomen Exam date and time: 06/05/2024 5:12 PM Age: 83 years old Clinical indication: Constipation; Additional info: Constipation, no other symptoms TECHNIQUE: Imaging protocol: Radiologic exam of the abdomen. Views: Frontal supine view of the abdomen. 1 View. COMPARISON: No relevant prior studies available. FINDINGS: Gastrointestinal tract: Nonspecific bowel gas pattern. Bones/joints: thoracolumbar spondylosis. Incomplete visualization of bilateral hip arthroplasties. IMPRESSION: 1. Nonspecific bowel gas pattern. 2. If there is concern for impaction, follow-up with computerized tomography.
[2024-06-05] MEDS: SENNOSIDES 8.6MG/DOCUSATE 50MG TABLET 1 TAB PO (17:53)
--- NOTE | 2024-06-05 18:19 | [facility].EDGENADL ---
Discharge Plan Disposition Patient Disposition: Home, Self-Care Chief Complaint: Recheck/Abnormal Lab/Rx Prescriptions Prescriptions: No Action metformin 500 mg tablet 500 mg PO BID Qty: 60 5RF losartan 50 mg tablet 50 mg PO DAILY Qty: 90 3RF ciprofloxacin HCl 500 mg tablet 500 mg PO BID 28 Days Qty: 56 0RF tamsulosin [Flomax] 0.4 mg capsule 0.4 mg PO DAILY Qty: 30 1RF Referrals Follow up/Referrals: Angelica Vargas APRN [Primary Care Provider] - See instructions Activity Restrictions/Add. Instructions Additional Instructions/Restrictions: Call your family doctor to establish care for this visit to the emergency department and schedule follow-up within 48 hours to ensure improvement. If you have any worsening of your condition or any other concerning signs or symptoms, return to the emergency department or your primary care doctor for further evaluation. Clinical Impressions Clinical Impression: Constipation Print Language Print Language: Sami Discharge ED Provider: Noah Mayen General Adult HPI General Chief complaint: Recheck/Abnormal Lab/Rx Stated complaint: constipation Time Seen by Provider: 06/05/24 16:49 Mode of Arrival: Wheelchair Source of Information: Patient and Spouse Limitations: No Limitations Description of Symptoms (Recalled from ER Triage Doc. by RN): c/o constipation, unknown time of last bm, states that he had diarrhea on but other than that she is unaware of any bm. Pt makes it very clear he is only here to fix his constipation and will not leave until that is done. Stool softners migratory farm hand History of Present Illness HPI narrative: Please note that above description of symptoms, in this electronic medical record under categorization of recalled from ER triage doctor by RN are reflective of an initial nursing assessment, however, is not reflective of my full history and physical exam that was personally taken and clarified. Consequentially, this preceding description of symptoms, which may include the patient's categorized chief complaint in the EMR, do not reflect my personal clinical impression, and the ultimate description of history of present illness and patient stated complaints should be deferred to this section of the note. Unless stated otherwise or congruent with this section of the note, additional signs, symptoms, or incongruence should be interpreted as inaccurate with my clinical impression. Related Data Previous Rx's ?Medication ?Instructions ?Recorded losartan 50 mg tablet 50 mg PO DAILY #90 tabs 08/09/23 ciprofloxacin HCl 500 mg tablet 500 mg PO BID 28 days #56 tabs 05/30/24 tamsulosin 0.4 mg capsule (Flomax) 0.4 mg PO DAILY #30 caps 05/30/24 metformin 500 mg tablet 500 mg PO BID #60 tabs 05/31/24 Allergies Allergy/AdvReac Type Severity Reaction Status Date / Time No Known Allergies Allergy Verified 05/30/24 14:33 [facility] Disclaimer: The information contained in this section may have been updated after the patient was seen, as this information can be updated by other users. 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 Skin cancer Surgical History H/O discectomy History of lumbar laminectomy for spinal cord decompression History of bilateral knee replacement H/O shoulder surgery History of bilateral hip replacements Social History Smoking Status: Never smoker alcohol intake: never current occupational status: other Travel in the last 8 weeks: None ROS Obtained: Yes All systems reviewed & no additional complaints except as documented Physical Exam General General appearance: alert Head Head exam: atraumatic and normocephalic Eye Eye exam: Present normal appearance, PERRL and EOMI Neck Neck exam: Present normal inspection, full ROM and trachea midline Respiratory Respiratory exam: Absent respiratory distress, wheezes, stridor, accessory muscle use or prolonged expiratory phase Cardiovascular Cardiovascular exam: Present other (Pulses equal symmetric in upper and lower extremities) Abdominal Exam Abdominal exam: Present soft; Absent distention, tenderness or pulsatile mass Extremities Exam Extremities exam: Absent edema Neurological Exam Neurological exam: Present alert, oriented X3 and CN II-XII intact; Absent motor sensory deficit Skin Skin exam: Present warm and dry; Absent diaphoresis or erythema Medical Decision Making Medical Records Medical records reviewed: Yes I reviewed the patient's medical records. Chuy Inquiry Pt receiving controlled substance: No Chuy was queried for this patient: No Vital Signs: 06/05/24 17:10 06/05/24 18:26 06/05/24 18:30 Temperature 97.9 F Temperature Source Oral Pulse Rate 74 79 Pulse Rate [Left Radial] 73 Respiratory Rate 16 Blood Pressure 153/78 H 148/75 H Blood Pressure [Right Arm] 164/98 H Blood Pressure Mean [Right Arm] 120 Blood Pressure Source [Right Arm] Automatic Cuff Blood Pressure Position [Right Arm] Sitting 02 Sat by Pulse Oximetry 99 97 97 Oxygen Delivery Method Room Air Orders (Tests/Meds): ED MEDICATIONS Discontinued Medications Generic Name Dose Route Start Last Admin Trade Name Alicia PRN Reason Stop Dose Admin Senna/Docusate Sodium 1 tab 06/05/24 17:53 06/05/24 17:53 Sennosides 8.6mg/Docusate 50mg Tablet PO 06/05/24 17:54 1 tab ONCE ONE Administration Sennosides 8.6 mg 06/05/24 17:07 06/05/24 17:53 Senna 8.6mg Tablet PO 06/05/24 17:08 Not Given ONCE ONE ORDERS Category Date Time Status KUB (single view) [XR KUB] Stat Exams 06/05/24 17:13 Completed Medical Decision Narrative: This is an unpleasant 83-year-old male no relevant medical presenting with concern for constipation. Patient madisyn, rude, largely uncooperative with questions, but states over and over again he is constipated and is not leaving the emergency department until his constipation is resolved. Patient states he has no abdominal pain, vomiting, urinary symptoms, blood per rectum, etc. Per his , he has tried everything there is to try, including MiraLAX, milk of magnesia, stool softeners. Both of them deny use of enemas. History was obtained via conversation with patient and . On arrival, patient hemodynamically stable, alert, oriented x4, appropriate, GCS 15, moving all extremities spontaneously, pupils equal and reactive to light. Full physical exam performed and significant for 83-year-old male in no acute distress. Declining physical exam and stating keep your hands off of me. Largely uncooperative with questioning, physical exam, and encounter overall. Differential includes constipation, fecal impaction, among others. Hematologic workup was considered given patient's recentHospital encounter on 05/30, but patient declining IV and other care. Enema administered. Senna was given orally. On reevaluation, patient has had multiple large-volume bowel movements. Because patient at baseline without signs or symptoms of clinical decompensation, deemed appropriate for discharge. Results were relayed to patient who voiced understanding and were agreeable to outpatient management and follow up. I discussed my clinical impression with patient and answered all questions. At this time, the evidence for any other entities in the differential is insufficient to warrant any further testing or ED observation. This was explained as well. Advisory was given that persistent or worsening symptoms require further evaluation. I confirmed the understanding of this discussion. Pc Technician disclaimer Much of this encounter note is an electronic federal mediator spoken language to printed text. Electronic federal mediator of the spoken language may permit errors. Although I have reviewed the note, some errors may still exist. Critical Care Critical Care Time Critical Care Time: No
[2024-06-05 18:26] VITALS: BP 153/78; PULSE 74; O2SAT 97
[2024-06-05 18:30] VITALS: BP 148/75; PULSE 79; O2SAT 97
[2024-06-05 19:52] VITALS: BP 148/75; PULSE 83; RESP 20; TEMP 36.6; O2SAT 96
== END 2024-06-05 19:52 | disposition home or self-care (01) ==
PROVIDERS: Emergency Provider Emergency Medicine; PCP Family Medicine
DX: K59.00 Constipation, unspecified (principal); R45.4 Irritability and anger
CPT/HCPCS: 74018; 99283